=== PATIENT | male | born 2000 | race Caucasian/White ===

== ENCOUNTER 2023-06-20 08:11 | Outpatient (CLI) | payer OTHER | END 2023-06-20 08:27 | disposition home or self-care (01) | LOC: SONOGRAMA 08:11 | PROVIDERS: ATTEND General Practice | DX: M54.2 Cervicalgia (principal); R06.02 Shortness of breath; R05.9 Cough, unspecified; R22.9 Localized swelling, mass and lump, unspecified; N50.9 Disorder of male genital organs, unspecified ==

== ENCOUNTER 2023-11-19 14:14 | Emergency (ER) | payer OTHER ==
[~2023-11-19] VITALS: Ht 177.8 cm; Wt 88.5 kg
[2023-11-19] MEDS ORDERED: CETIRIZINE HCL 5 MG/5 ML ML PO STA (16:25)
[2023-11-19] MEDS ORDERED: GUAIFENESIN/DEXTROMETHORPHAN 100 MG/5 ML ML PO STA (16:26)
== END 2023-11-19 17:39 | disposition left against medical advice (07) ==
LOC: ER 14:14
DX: J06.9 Acute upper respiratory infection, unspecified (principal); Z87.09 Personal history of other diseases of the respiratory system